=== PATIENT | female | born 1955 | race Caucasian/White ===

== ENCOUNTER 2018-09-03 19:16 | Emergency (ER) | payer OTHER ==
[~2018-09-03] VITALS: Ht 157.5 cm; Wt 71.7 kg
[2018-09-03 19:40] VITALS: Ht 157.5 cm; Wt 71.7 kg
[2018-09-03 22:28] VITALS: BP 126/78
== END 2018-09-03 22:28 | disposition home or self-care (01) ==
LOC: ED 19:16
DX: J40 Bronchitis, not specified as acute or chronic (principal)
CPT/HCPCS: J7613; Q0092